=== PATIENT | male | born 2000 | race Caucasian/White ===

== ENCOUNTER → 2020-09-24 | Outpatient (CLI) | payer BC | END | disposition home or self-care (01) | DX: R19.03 Right lower quadrant abdominal swelling, mass and lump (principal) ==

== ENCOUNTER 2020-12-04 03:32 | Emergency (ER) | payer BC, OTHER ==
[2020-12-04 03:40] VITALS: RESP 18; TEMP 98
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
[2020-12-04 05:56] VITALS: BP 108/66; PULSE 98
[2020-12-04] MEDS ORDERED: IBUPROFEN 600 MG TAB PO STA (06:11)
== END 2020-12-04 06:55 | disposition home or self-care (01) ==
LOC: EC 03:32
DX: S02.2XXA Fracture of nasal bones, initial encounter for closed fracture (principal); Y04.8XXA Assault by other bodily force, initial encounter
CPT/HCPCS: 70450; 70486; 72125; 99284

== ENCOUNTER → 2023-11-13 | Outpatient (CLI) | payer OTHER ==
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
== END | disposition home or self-care (01) ==
LOC: RADUSWWP 15:20
PROVIDERS: ATTEND Emergency Medicine
DX: S30.22XA Contusion of scrotum and testes, initial encounter (principal); N43.3 Hydrocele, unspecified; N50.3 Cyst of epididymis; N50.819 Testicular pain, unspecified
CPT/HCPCS: 76870; 93975